=== PATIENT | female | born 1985 | race Hispanic/Latino ===

== ENCOUNTER 2022-07-04 13:58 | Outpatient (CLI) | payer OTHER | END 2022-07-04 13:59 | disposition home or self-care (01) | LOC: BICMAMMO 13:58 | PROVIDERS: ATTEND Obstetrics & Gynecology | DX: N64.52 Nipple discharge (principal) | CPT/HCPCS: 77066; G0279 ==

== ENCOUNTER 2024-08-31 12:18 | Outpatient (CLI) | payer OTHER | END 2024-08-31 12:19 | disposition home or self-care (01) | LOC: BICMAMMO 12:18 | PROVIDERS: ATTEND Obstetrics & Gynecology | DX: Z12.31 Encounter for screening mammogram for malignant neoplasm of breast (principal); N64.89 Other specified disorders of breast | CPT/HCPCS: 77063; 77067 ==

== ENCOUNTER 2024-09-03 09:45 | Outpatient (CLI) | payer OTHER | END 2024-09-03 09:46 | disposition home or self-care (01) | LOC: BICMAMMO 09:45 | PROVIDERS: ATTEND Obstetrics & Gynecology | DX: N64.89 Other specified disorders of breast (principal) | CPT/HCPCS: G0279 ==